=== PATIENT | male | born 1940 ===

== ENCOUNTER 2020-11-14 12:04 | Observation (INO) | payer MEDICARE ==
[~2020-11-14] VITALS: Ht 167.6 cm; Wt 58.8 kg
[2020-11-14] MEDS ORDERED: METF500 PO (12:23)
[2020-11-14] MEDS ORDERED: Aspir 8181 MG PO (12:24)
[2020-11-14] MEDS ORDERED: GLIP10 PO (12:24)
[2020-11-14] MEDS ORDERED: TOPROL XL50 MG PO (12:24)
[2020-11-14] MEDS ORDERED: CLOP75 PO (12:24)
[2020-11-14] MEDS ORDERED: ATORVASTATIN CA40 M1 PO (12:24)
[2020-11-14] MEDS ORDERED: POTA10T PO (12:25)
[2020-11-14] MEDS ORDERED: FERSU300 PO (12:25)
[2020-11-14] MEDS ORDERED: TORSE20 PO (12:25)
[2020-11-14] MEDS ORDERED: Norco 5-325 Ta1 EACH PO (12:25)
[2020-11-14] MEDS ORDERED: RESTORIL PO (12:26)
[2020-11-14 12:39] LABS: BASOPHILS ABSOLUTE AUTO 0.04 K/mm3 (0.00-0.23); BASOPHILS PERCENT AUTO 1 % (0-2); EOSINOPHILS ABSOLUTE AUTO 0.02 K/mm3 (0.00-0.68); EOSINOPHILS PERCENT AUTO 0 % (0-6); Hematocrit 43.3 % (37.0-53.0); Hemoglobin 13.8 g/dL (13.5-17.5); IMMATURE GRAN ABSOLUTE AUTO 0.03 K/mm3 (0.00-0.10); IMMATURE GRAN PERCENT AUTO 0 % (0-1); LYMPHOCYTES ABSOLUTE AUTO 1.05 K/mm3 (0.84-5.20); LYMPHOCYTES PERCENT AUTO 14 % (21-46); MONOCYTES ABSOLUTE AUTO 0.47 K/mm3 (0.16-1.47); MONOCYTES PERCENT AUTO 6 % (4-13); Mean Corpuscular HGB 32.8 pg (26.0-34.0); Mean Corpuscular HGB Conc 31.9 g/dL (31.5-36.5); Mean Corpuscular Volume 103 fL (80-100); Mean Platelet Volume 10.9 fL (9.1-12.4); NEUTROPHILS ABSOLUTE AUTO 5.92 K/mm3 (1.96-9.15); NEUTROPHILS PERCENT AUTO 79 % (41-73); Platelet Count 182 K/mm3 (150-400); RDW Coefficient Variation 14.6 % (11.7-14.2); Red Blood Cell Count 4.21 M/mm3 (4.30-5.90); White Blood Cell Count 7.53 K/mm3 (4.00-11.30)
[2020-11-14 12:57] LABS: Albumin, Blood 3.6 g/dL (3.4-5.0); Albumin/Globulin Ratio 0.9 (0.8-1.8); Bilirubin, Total 1.8 mg/dL (0.1-1.0); Bun/Creatinine Ratio 22.8 (12.0-20.0); Calcium, Blood 9.4 mg/dL (8.5-10.1); Creatinine, Blood 2.06 mg/dL (0.60-1.20); Globulin, Blood 3.9 g/dL (2.2-4.0); Potassium, Blood 5.1 mmol/L (3.5-5.5); Total Protein, Blood 7.5 g/dL (6.4-8.2); Troponin I 0.098 ng/mL (0.000-0.040)
[2020-11-14 13:54] LABS: Source, Urine Clean Catch
[2020-11-14 14:01] LABS: Bilirubin, Urine Neg (Neg); Blood, Urine Neg (Neg); Glucose Qualitative, Urine 4+ (Neg); Ketones, Urine 1+ (Neg); Leukocyte Esterase, Urine 1+ (Neg); Nitrite, Urine Neg (Neg); Protein, Urine 3+ (Neg); Urobilinogen, Urine 1+ (Normal)
[2020-11-14 14:25] LABS: Appearance, Urine Clear (Clear); Color, Urine Yellow (P-Yellow)
[2020-11-14 14:27] LABS: Bacteria Few /hpf; Red Blood Cells, Urine 0-2 /hpf (0-2); Squamous Epithelial Cells Few /hpf (Few)
[2020-11-14 14:28] LABS: Amorphous Light (0-Heavy)
--- NOTE | 2020-11-14 19:16 | NUR ---
1909 PT ADMITTED TO ROOM 361 PER CART FROM ER VIA CART; REPORT RECEIVED FROM AYAKA TORRES VIA ER; ALERT AND ORIENTED X 4.
[2020-11-14] MEDS ORDERED: PANT40 PO (22:06)
[2020-11-14] MEDS ORDERED: Fosinopril Sodi20 MG PO (22:07)
[2020-11-14] MEDS ORDERED: THERA-D2000 UNIT PO (22:09)
[2020-11-14] MEDS ORDERED: DOCU100 PO (22:10)
[2020-11-14] MEDS ORDERED: Vitamin B-121000 MCG PO (22:10)
[2020-11-14] MEDS ORDERED: MULVITA PO (22:11)
[2020-11-14] MEDS ORDERED: MIRALAX17 GM PO (22:11)
--- NOTE | 2020-11-15 03:47 | NUR ---
SHIFT SUMMARY: 79 Y/O MALE RESTED COMFORTABLY ALL SHIFT WITH NO C/O PAIN, NAUSEA OR RESPIRATORY DISTRESS; ALERT AND ORIENTED X 4; TELEMETRY REFLECTS NSR PER FEMI--RESIDENT ASSISTANT; BED ALARM APPLIED FOR SAFETY, BED LOW POSITION WITH CALL LIGHT AT SIDE.
[2020-11-15 05:17] LABS: BASOPHILS ABSOLUTE AUTO 0.03 K/mm3 (0.00-0.23); BASOPHILS PERCENT AUTO 0 % (0-2); EOSINOPHILS ABSOLUTE AUTO 0.05 K/mm3 (0.00-0.68); EOSINOPHILS PERCENT AUTO 1 % (0-6); Hematocrit 39.9 % (37.0-53.0); Hemoglobin 12.6 g/dL (13.5-17.5); IMMATURE GRAN ABSOLUTE AUTO 0.03 K/mm3 (0.00-0.10); IMMATURE GRAN PERCENT AUTO 0 % (0-1); LYMPHOCYTES ABSOLUTE AUTO 1.44 K/mm3 (0.84-5.20); LYMPHOCYTES PERCENT AUTO 18 % (21-46); MONOCYTES ABSOLUTE AUTO 0.79 K/mm3 (0.16-1.47); MONOCYTES PERCENT AUTO 10 % (4-13); Mean Corpuscular HGB 31.7 pg (26.0-34.0); Mean Corpuscular HGB Conc 31.6 g/dL (31.5-36.5); Mean Corpuscular Volume 101 fL (80-100); NEUTROPHILS PERCENT AUTO 71 % (41-73); Platelet Count 163 K/mm3 (150-400); RDW Coefficient Variation 14.5 % (11.7-14.2); Red Blood Cell Count 3.97 M/mm3 (4.30-5.90); White Blood Cell Count 7.94 K/mm3 (4.00-11.30)
[2020-11-15 05:29] LABS: Bun/Creatinine Ratio 23.7 (12.0-20.0); Calcium, Blood 9.2 mg/dL (8.5-10.1); Creatinine, Blood 2.28 mg/dL (0.60-1.20); Magnesium, Blood 2.3 mg/dL (1.6-2.4); Potassium, Blood 5.6 mmol/L (3.5-5.5)
--- NOTE | 2020-11-15 13:45 | NUR ---
ADMIT: 11/14/20 DISCHARGE: DX: Shortness of breath, poor appetite CC: [facility] CALL: RESIDENCE: home CAREGIVER: Kalpesh Herrera, Child, Amber Herrera, Family Member, DX:Abnl weight loss, CKD-stage 3, HTN, GERD, see list DME: none CCM: none HOME HEALTH: none SUMMARY: Admit: 11/14/20 11/15/20- Per chart review with Dr. Jaramillo, pt has been found to have heart failure, DRE, possibly due to poor oral intake of nutrition. Pt could potentially be d/c either Monday or Monday. 1: Shortness of breath A/P: Unclear etiology. CXR wnl. BNP significantly elevated but pt has no clinical signs of CHF exacerbation, no edema, or crackles and clinically appears dry. In fact pt is down 10 kg from last weight in PCP office. No fevers or cough to suggest pneumonia. COVID swab was negative. Pt able to oxygenate well, no tachypnea. -Pt given IV furosemide in ED, will monitor response and if improvement in respiratory status. -Pt had elevated D-dimer, however known kidney disease. Well score is 0, so low suspicion regardless of D-dimer. Will get US of LE, if DVT seen with do CTA of chest, but otherwise will hold off on CT of chest. 2: Poor appetite with nausea. A/P: Unclear etiology. Abdominal exam benign, non-surgical. Pt had leukocytes in urine, possible UTI leading to poor appetie and nausea. -Culture urine -IV ceftriaxone -Zofran PRN for nausea -Continue to monitor 3: Acute on chronic kidney failure A/P: sCR 2.06, GFR 33. Pt baseline of sCr 1.62, FR 44. This is probably due to poor PO intake, but may also be 2/2 to urinary infection. -Urine culture as above -Treat anorexia/nausea as above -Repeat BMP in AM. 4: Heart failure with reduced ejection fraction A/P: Baseline LVEF of 23%. Pt with elevation of BNP, but no physical exam finding c/w with acute exacerbation of such. Pt was given IV furosemide in ED. Will monitor response and reassess in AM. Continue home metoprolol, ASA, plavix, monopril and torsemide. 5: Diabetes mellitus, type 2 A/P: Holding home metformin and glipizide given DRE -BG qAC&HS, LDSSI 6: Hypertension A/P: Continue home metoprolol, monopril and torsemide. 7: Hyperlipidemia A/P: Continue home atorvastatin 8: Chronic insomnia A/P: Continue home temazepam.
[2020-11-15 14:30] LABS: Bun/Creatinine Ratio 24.8 (12.0-20.0); Calcium, Blood 9.3 mg/dL (8.5-10.1); Creatinine, Blood 2.22 mg/dL (0.60-1.20)
[2020-11-15] MEDS ORDERED: ONDA4 PO (16:47)
[2020-11-15] MEDS ORDERED: CEPH250A PO (16:48)
--- NOTE | 2020-11-15 17:13 | NUR ---
DISCHARGE PT DISCHARGED WITH NO ACUTE CHANGES IN ASSESSMENT. PT & HIS DAUGHTER IN LAW EDUCATED ON DC INSTRUCTIONS, NEW MEDS, AND FOLLOW UP APPOINTMENTS. INCLUDING FOLLOW UP LABS. PT WHEELED OUT BY THIS RN. DRIVEN HOME BY DAUGHTER IN LAW.
== END 2020-11-15 16:59 | disposition home or self-care (01) ==
LOC: ER 12:04 → ERHOLD 12:05 → MEDS 19:09
PROVIDERS: Emergency Medicine; ADMIT Family Medicine
DX: R06.02 Shortness of breath (principal); R63.0 Anorexia; R11.0 Nausea; R00.0 Tachycardia, unspecified; N17.9 Acute kidney failure, unspecified; I13.0 Hypertensive heart and chronic kidney disease with heart failure and stage 1 through stage 4 chronic kidney disease, or unspecified chronic kidney disease; E11.22 Type 2 diabetes mellitus with diabetic chronic kidney disease; N18.30 Chronic kidney disease, stage 3 unspecified; I50.20 Unspecified systolic (congestive) heart failure; E78.5 Hyperlipidemia, unspecified; F51.04 Psychophysiologic insomnia; I25.10 Atherosclerotic heart disease of native coronary artery without angina pectoris; I27.20 Pulmonary hypertension, unspecified; H91.90 Unspecified hearing loss, unspecified ear; S91.114D Laceration without foreign body of right lesser toe(s) without damage to nail, subsequent encounter; Z79.84 Long term (current) use of oral hypoglycemic drugs; Z79.02 Long term (current) use of antithrombotics/antiplatelets; Z79.82 Long term (current) use of aspirin; Z95.5 Presence of coronary angioplasty implant and graft; Z87.891 Personal history of nicotine dependence; Z95.810 Presence of automatic (implantable) cardiac defibrillator; Z66 Do not resuscitate; Z88.0 Allergy status to penicillin; Z20.822 Contact with and (suspected) exposure to COVID-19
CPT/HCPCS: 36415; 71045; 73630; 80048; 80053; 81001; 82947; 83735; 83880; 84484; 85025; 85379; 85651; 86140; 87086; 93005; 93010; 93970; 96372; 96374; 99285-25; A9270; G0378; J0696; J1644; J1940; J2405; J7120

== ENCOUNTER 2020-12-28 01:29 | Day surgery (SDC) | payer MEDICARE ==
[~2020-12-28 01:29] MED LIST: ATORVASTATIN CA40 M1 PO; Aspir 8181 MG PO; CEPH250A PO; CLOP75 PO; DOCU100 PO; FERSU300 PO; Fosinopril Sodi20 MG PO; GLIP10 PO; METF500 PO; MIRALAX17 GM PO; MULVITA PO; Norco 5-325 Ta1 EACH PO; ONDA4 PO; PANT40 PO; POTA10T PO; RESTORIL PO; THERA-D2000 UNIT PO; TOPROL XL50 MG PO; TORSE20 PO; Vitamin B-121000 MCG PO
== END 2020-12-28 22:44 | disposition home or self-care (01) ==
LOC: WOUND 01:29
DX: E11.621 Type 2 diabetes mellitus with foot ulcer (principal); L97.512 Non-pressure chronic ulcer of other part of right foot with fat layer exposed; E11.51 Type 2 diabetes mellitus with diabetic peripheral angiopathy without gangrene; I10 Essential (primary) hypertension; I73.9 Peripheral vascular disease, unspecified; I87.2 Venous insufficiency (chronic) (peripheral); Z88.0 Allergy status to penicillin; Z87.891 Personal history of nicotine dependence
CPT/HCPCS: G0463

== ENCOUNTER 2021-01-06 01:30 | Day surgery (SDC) | payer MEDICARE | END 2021-01-06 22:40 | disposition home or self-care (01) | LOC: WOUND 01:30 | DX: E11.621 Type 2 diabetes mellitus with foot ulcer (principal); L97.512 Non-pressure chronic ulcer of other part of right foot with fat layer exposed; E11.51 Type 2 diabetes mellitus with diabetic peripheral angiopathy without gangrene; I73.9 Peripheral vascular disease, unspecified; I87.2 Venous insufficiency (chronic) (peripheral) | CPT/HCPCS: A9270; G0463 ==

== ENCOUNTER 2021-01-13 00:23 | Day surgery (SDC) | payer MEDICARE | END 2021-01-13 22:35 | disposition home or self-care (01) | LOC: WOUND 00:23 | DX: E11.621 Type 2 diabetes mellitus with foot ulcer (principal); L97.512 Non-pressure chronic ulcer of other part of right foot with fat layer exposed; E11.51 Type 2 diabetes mellitus with diabetic peripheral angiopathy without gangrene; I87.2 Venous insufficiency (chronic) (peripheral); E11.65 Type 2 diabetes mellitus with hyperglycemia | CPT/HCPCS: A9270; G0463 ==

== ENCOUNTER 2021-01-15 16:21 | Inpatient (IN) | payer MEDICARE ==
[~2021-01-15] VITALS: Ht 162.6 cm; Wt 70.6 kg
[2021-01-15 16:56] LABS: BASOPHILS ABSOLUTE AUTO 0.03 K/mm3 (0.00-0.23); BASOPHILS PERCENT AUTO 1 % (0-2); EOSINOPHILS ABSOLUTE AUTO 0.04 K/mm3 (0.00-0.68); EOSINOPHILS PERCENT AUTO 1 % (0-6); Hematocrit 44.8 % (37.0-53.0); Hemoglobin 14.5 g/dL (13.5-17.5); IMMATURE GRAN ABSOLUTE AUTO 0.01 K/mm3 (0.00-0.10); IMMATURE GRAN PERCENT AUTO 0 % (0-1); LYMPHOCYTES ABSOLUTE AUTO 1.21 K/mm3 (0.84-5.20); LYMPHOCYTES PERCENT AUTO 25 % (21-46); MONOCYTES ABSOLUTE AUTO 0.43 K/mm3 (0.16-1.47); MONOCYTES PERCENT AUTO 9 % (4-13); Mean Corpuscular HGB 33.2 pg (26.0-34.0); Mean Corpuscular HGB Conc 32.4 g/dL (31.5-36.5); Mean Corpuscular Volume 103 fL (80-100); Mean Platelet Volume 10.7 fL (9.1-12.4); NEUTROPHILS ABSOLUTE AUTO 3.16 K/mm3 (1.96-9.15); NEUTROPHILS PERCENT AUTO 65 % (41-73); Platelet Count 151 K/mm3 (150-400); RDW Coefficient Variation 17.3 % (11.7-14.2); RDW Standard Deviation 65.3 fL (35.1-46.3); Red Blood Cell Count 4.37 M/mm3 (4.30-5.90); White Blood Cell Count 4.88 K/mm3 (4.00-11.30)
[2021-01-15 17:26] LABS: Albumin, Blood 3.1 g/dL (3.4-5.0); Albumin/Globulin Ratio 0.8 (0.8-1.8); Bilirubin, Total 1.4 mg/dL (0.1-1.0); Bun/Creatinine Ratio 21.8 (12.0-20.0); Calcium, Blood 9.5 mg/dL (8.5-10.1); Creatinine, Blood 2.34 mg/dL (0.60-1.20); Globulin, Blood 4.1 g/dL (2.2-4.0); Potassium, Blood 5.2 mmol/L (3.5-5.5); Total Protein, Blood 7.2 g/dL (6.4-8.2); Troponin I 0.089 ng/mL (0.000-0.040)
[2021-01-15] MEDS ORDERED: Fosinopril Sodi10 MG PO (19:16)
[2021-01-15] MEDS ORDERED: TORS10 PO (19:16)
[2021-01-15] MEDS ORDERED: TORSE20 PO (19:17)
[2021-01-15 20:50] LABS: Source, Urine Clean Catch
[2021-01-15 20:59] LABS: Appearance, Urine Clear (Clear); Bilirubin, Urine Neg (Neg); Blood, Urine Neg (Neg); Color, Urine Yellow (P-Yellow); Glucose Qualitative, Urine Neg (Neg); Ketones, Urine Neg (Neg); Leukocyte Esterase, Urine 1+ (Neg); Nitrite, Urine Neg (Neg); Protein, Urine 3+ (Neg); Specific Gravity, Urine 1.015 (1.003-1.022); Urobilinogen, Urine NORM (Normal)
[2021-01-15 21:13] LABS: Bacteria Rare /hpf; Hyaline Casts 50-100 /lpf (0-2); Red Blood Cells, Urine Not Seen /hpf (0-2); Squamous Epithelial Cells Rare /hpf (Few); White Blood Cells, Urine 0-2 /hpf (0-5)
[2021-01-15] MEDS ORDERED: METOPROLOL SUCC25 MG PO (21:58)
[2021-01-15] MEDS ORDERED: SEMGLEE PE100 UNIT/1 SC (21:58)
[2021-01-15] MEDS ORDERED: Fosinopril Sodi20 MG PO (21:59)
[2021-01-15 23:36] LABS: Troponin I 0.105 ng/mL (0.000-0.040)
[2021-01-16] MEDS ORDERED: PANT40 PO ×2 (00:22→00:23)
--- NOTE | 2021-01-16 00:25 | NUR ---
ADMISSION: PATIENT IS RECIEVED FROM ER. VSS, BP IS SOFT. PATIENT IS ASYMPTOMATIC. PATIENT AND FAMILY ARE ORIENTED TO ROOM AND CALL SANCHEZ. DAUGHTER WILL TAKE VALUBLES HOME. BED ALARM IS ON FOR SAFETY.
--- NOTE | 2021-01-16 04:24 | NUR ---
SHIFT SUMMARY: PATIENT IS A&OX3, DOES NOT KNOW DATE. BP HAS IMPROVED WITH 500 ML OF NS. TROPONINS ARE ELEVATED, 0.089 AND 0.105. NO REPORTS OF CHEST PAIN. NSR WITH BBB ON TELI. DR CORREIA IS UNDATED ON TROPONINS AND WILL REVIEW CHART. PATIENT HAS A PRESSURE ULCER FROM ILL FITTING SHOES THAT IS BEING TREATED AT HOME WITH DRSG CHANGES QOD. DAUGHTER IN LAW OFFERS TO BRING IN MEDICATED INTMENT BEING USED TO CONTINUE CURRENT TREATMENTS WHILE IN HOSPITAL. THIS ORDER IS ALSO OBTAINED BY DR CORREIA.
[2021-01-16 06:49] LABS: BASOPHILS ABSOLUTE AUTO 0.03 K/mm3 (0.00-0.23); BASOPHILS PERCENT AUTO 1 % (0-2); EOSINOPHILS ABSOLUTE AUTO 0.02 K/mm3 (0.00-0.68); EOSINOPHILS PERCENT AUTO 0 % (0-6); Hematocrit 46.2 % (37.0-53.0); IMMATURE GRAN ABSOLUTE AUTO 0.02 K/mm3 (0.00-0.10); IMMATURE GRAN PERCENT AUTO 0 % (0-1); LYMPHOCYTES ABSOLUTE AUTO 1.28 K/mm3 (0.84-5.20); LYMPHOCYTES PERCENT AUTO 21 % (21-46); MONOCYTES ABSOLUTE AUTO 0.48 K/mm3 (0.16-1.47); MONOCYTES PERCENT AUTO 8 % (4-13); Mean Corpuscular HGB 33.3 pg (26.0-34.0); Mean Corpuscular HGB Conc 32.5 g/dL (31.5-36.5); Mean Corpuscular Volume 103 fL (80-100); Mean Platelet Volume 10.9 fL (9.1-12.4); NEUTROPHILS ABSOLUTE AUTO 4.37 K/mm3 (1.96-9.15); NEUTROPHILS PERCENT AUTO 71 % (41-73); Platelet Count 151 K/mm3 (150-400); RDW Coefficient Variation 17.7 % (11.7-14.2)
[2021-01-16 07:07] LABS: Albumin, Blood 2.8 g/dL (3.4-5.0); Albumin/Globulin Ratio 0.8 (0.8-1.8); Bilirubin, Total 1.6 mg/dL (0.1-1.0); Bun/Creatinine Ratio 21.7 (12.0-20.0); Calcium, Blood 9.3 mg/dL (8.5-10.1); Creatinine, Blood 2.4 mg/dL (0.60-1.20); Globulin, Blood 3.7 g/dL (2.2-4.0); Potassium, Blood 5.4 mmol/L (3.5-5.5); Total Protein, Blood 6.5 g/dL (6.4-8.2); Troponin I 0.114 ng/mL (0.000-0.040)
--- NOTE | 2021-01-16 16:56 | NUR ---
SHIFT SUMMARY NO ACUTE EVENTS THIS SHIFT, VSS. PATIENT IS ALERT AND ORIENTED, COOPERATIVE WITH CARE. SOBOBA. PRESSURE WOUND NOTED ON 2ND TO OUTERMOST TOE OF RIGHT FOOD, ON R OUTER SIDE OF TOE, DOCUMENTED WITH PICTURE IN CHART. DRESSING CHANGE DONE THIS AM BY THIS RN, NO DISCHARGE NOTED AT SITE. PATIENT STARTED ON IV LASIX THIS SHIFT, IV ABX CONTINUED. NO DIARRHEA, PATIENT DENIES PAIN THIS SHIFT. BLOOD SUGAR COVERED AC PER EMAR.
--- NOTE | 2021-01-16 22:36 | NUR ---
CARDIAC: PATIENT HAD A 12 BEAT RUN OF V-TACH. VS SHOW A SLIGHT DROP IN BP. PATIENT IS ASYMPTOMATIC. THIS EVENT IS S/P STRAIGHT CATH AND MULTIPLE IV START ATTEMPS. DR MAZARIEGOS IS NOTIFIED AND ORDERS FOR BMP AND MAG IN AM. CONTINUE TO MONITOR ON TELI.
--- NOTE | 2021-01-17 00:37 | NUR ---
CARDIAC: @ 2340 PATIENT HAD A 6 BEAT RUN OD V-TACH. VS 98.6, 108, 24, 80/52. AT THIS TIME PATIENT IS ASYMPTOMATIC. @ 1566 CHEMICAL RESEARCH ENGINEER WAS PLACING A CALL TO MD AND PATIENT BECAME DIAPHORETIC, SLOW TO RESPOND AND CLUTCHING HIS CHEST PER LAWN SERVICE SUPERVISOR IN ROOM. RAPID RESPONSE IS CALLED. DR VELÁZQUEZ ORDERUDNCAN ARE TO START NS BOLUS, STAT LABS, LEVOPHED GTT AND TRANSFER TO ICU. DAUGHTER IN LAW, HARESH VAZQUEZ IS IN THE ROOM AND IS AWARE OF CHANGE IN CONDITION AND TRANSFER. NS BOLUS IS STARTED. LEVOPHED GTT WILL BE STARTED IN ICU.
--- NOTE | 2021-01-17 00:57 | NUR ---
: LATE ENTRY FOR 01/15/212114 PATIENT IS DTV, BLADDER SCAN SHOWS OVER [address] MAZARIEGOS IS NOTIFIED AND ORDER TO STRAIGHT CATH WAS OBTAINED. REPEAT BLADDER SCAN IN AM, IF RETAINING OVER [address] MOSQUERA.
[2021-01-17 01:01] LABS: BASOPHILS ABSOLUTE AUTO 0.05 K/mm3 (0.00-0.23); BASOPHILS PERCENT AUTO 1 % (0-2); EOSINOPHILS ABSOLUTE AUTO 0.12 K/mm3 (0.00-0.68); EOSINOPHILS PERCENT AUTO 2 % (0-6); Hematocrit 45.1 % (37.0-53.0); Hemoglobin 14.2 g/dL (13.5-17.5); IMMATURE GRAN ABSOLUTE AUTO 0.01 K/mm3 (0.00-0.10); IMMATURE GRAN PERCENT AUTO 0 % (0-1); LYMPHOCYTES ABSOLUTE AUTO 2.06 K/mm3 (0.84-5.20); LYMPHOCYTES PERCENT AUTO 31 % (21-46); MONOCYTES ABSOLUTE AUTO 0.44 K/mm3 (0.16-1.47); MONOCYTES PERCENT AUTO 7 % (4-13); Mean Corpuscular HGB 33.5 pg (26.0-34.0); Mean Corpuscular HGB Conc 31.5 g/dL (31.5-36.5); Mean Corpuscular Volume 106 fL (80-100); Mean Platelet Volume 10.5 fL (9.1-12.4); NEUTROPHILS ABSOLUTE AUTO 3.92 K/mm3 (1.96-9.15); NEUTROPHILS PERCENT AUTO 59 % (41-73); Platelet Count 144 K/mm3 (150-400); RDW Coefficient Variation 17.4 % (11.7-14.2); RDW Standard Deviation 68.8 fL (35.1-46.3); Red Blood Cell Count 4.24 M/mm3 (4.30-5.90)
[2021-01-17 01:10] LABS: Source, Urine Catheter
[2021-01-17 01:12] LABS: Bilirubin, Urine Neg (Neg); Blood, Urine 4+ (Neg); Glucose Qualitative, Urine Neg (Neg); Ketones, Urine Neg (Neg); Leukocyte Esterase, Urine 1+ (Neg); Nitrite, Urine Neg (Neg); Protein, Urine 2+ (Neg); Specific Gravity, Urine 1.015 (1.003-1.022); Urobilinogen, Urine NORM (Normal)
[2021-01-17 01:13] LABS: Appearance, Urine Clear (Clear); Color, Urine Yellow (P-Yellow)
[2021-01-17 01:21] LABS: Albumin, Blood 2.8 g/dL (3.4-5.0); Anion Gap 10 mmol/L (6-16); Blood Urea Nitrogen 57 mg/dL (8-24); Bun/Creatinine Ratio 22.5 (12.0-20.0); CO2, Blood 20 mmol/L (21-32); Calcium, Blood 8.8 mg/dL (8.5-10.1); Chloride, Blood 105 mmol/L (98-108); Creatinine, Blood 2.53 mg/dL (0.60-1.20); Glomerular Filtration Rate 26 (60-); Glucose, Blood 258 mg/dL (70-99); Magnesium, Blood 2.3 mg/dL (1.6-2.4); Phosphorus, Blood 4.3 mg/dL (2.5-4.9); Potassium, Blood 4.9 mmol/L (3.5-5.5); Sodium, Blood 135 mmol/L (136-145); Troponin I 0.103 ng/mL (0.000-0.040)
[2021-01-17 01:26] LABS: Amorphous Light (0-Heavy); Bacteria Rare /hpf; Hyaline Casts 25-50 /lpf (0-2); Red Blood Cells, Urine TNTC /hpf (0-2); Squamous Epithelial Cells Not Seen /hpf (Few); White Blood Cells, Urine Rare /hpf (0-5)
--- NOTE | 2021-01-17 02:55 | NUR ---
ASSUMED PT CARE AT 0010 PT TRANSFERRED TO ICU FROM MEDICAL FLOOR SECONDARY TO HYPOTENION WITH A 12 BEAT RUN OF VTACH. UPON ARRIVAL ON UNIT PT WAS NOTED TO BE PALE, DIAPHORETIC, AND SOB. LUNG SOUNDS HAD CRACKLES AND RHONCHI NOTED TO BASES. PT WAS ON 6L OF OXYGEN VIA NC; HOWEVER, OXYGEN SATURATIONS WERE MID 80'S UPON ARRIVAL. PT PLACED ON CPAP WITH 10L BLEED IN, WHICH IS NOW DOWN TO 3L. PT HAS POOR PERFUSION EVIDENCED BY PALE NAIL BEDS AND PURPLE DISCOLORATION TO EARS AND KNEES; NONETHELESS, HE IS COLD TO THE TOUCH. THEREFORE, UNSURE IF MID 80'S BIOX WAS A TRUE READING. FOREHEAD PROBE PLACED WITH OXYGEN SATURATIONS SHOWING >90%. NEW IV PLACED UPON ARRIVAL, 18G TO RIGHT UPPER ARM; BOLUS STOPPED AND LEVOPHED STARTED AT 5MCG/MIN. SBP 90-100'S WITH MAPS >65. HR 90'S; 1ST DEGREE AV BLOCK. DENIES CHEST PAIN. 16F COUDE CATHETER PLACED FOR STRICT I/O MONITORING. PT IS ALERT AND ORIENTED AND ABLE TO MAKE NEEDS KNOWN. CALL LIGHT WITHIN REACH. WILL CONTINUE TO MONITOR.
[2021-01-17 04:30] LABS: Bun/Creatinine Ratio 23.2 (12.0-20.0); Creatinine, Blood 2.46 mg/dL (0.60-1.20); Magnesium, Blood 2.4 mg/dL (1.6-2.4)
--- NOTE | 2021-01-17 05:23 | NUR ---
END OF SHIFT SUMMARY. LEVOPHED TITRATED DOWN TO 2MCG/MIN WITH SBP 90'S, AND MAP'S >65. PT HAS REMAINED ON CPAP WITH 3L BLEED IN; BIOX >90%. WORK OF BREATHING HAS EASED. PT IS NO LONGER DIAPHORETIC AND APPEARS COMFORTABLE AT THIS TIME. PT IS ALERT AND ORIENTED. HE IS ABLE TO SHIFT OWN WEIGHT IN BED. MOSQUERA CATHETER IS PATENT AND DRAINING DAWN COLORED URINE TO GRAVITY. VSS AT THIS TIME, SEE FLOWSHEET. WILL CONTINUE TO MONITOR UNTIL REPORT IS HANDED OFF TO ONCOMING RN.
--- NOTE | 2021-01-17 08:22 | NUR ---
ASSUMED CARE BEDSIDE REPORT RECIEVED. PT IS LAYING IN BED AWAKE, ALERT, AND ORIENTED. PT ANSWERS QUESTIONS APPROPRIATELY. VITAL SIGNS STABLE AT THIS TIME. SBP 90'S WITH LEVOPHED ON STANDBY. PT ON ROOM AIR. PT DENIES SOB AT REST. PT MOVES ALL EXTREMITIES, WEAKNESS NOTED. IV'S SALINE LOCKED. MOSQUERA IN PLACE WITH CLEAR YELLOW OUTPUT NOTED. EDEMA TO BLE'S NOTED. WILL CONTINUE TO MONITOR.
--- NOTE | 2021-01-17 13:08 | NUR ---
UPDATE PT WITH DECREASING BP THIS MORNING. DR WONG CONSULTED PER DR CHURCHILL. BEDSIDE ECHO DONE. PT ON LEVOPHED AT 2 MCG/MIN AT THIS TIME. DR WONG AND DR CHURCHILL AWARE. PT REMAINS ALERT AND PLEASANT. PT DAUGHTER IN LAW HARESH UPDATED VIA PHONE. WILL CONTINUE CURRENT PLAN OF TREATMENT AT THIS TIME. GOAL MAP [address] WONG. WILL CONTINUE TO MONITOR.
--- NOTE | 2021-01-17 14:31 | NUR ---
ECHOCARDIOGRAM COMPLETE
--- NOTE | 2021-01-17 17:15 | NUR ---
SHIFT SUMMARY NO ACUTE CHANGES THIS SHIFT. PT HAS REMAINED ALERT AND ORIENTED WHEN AWAKE. PT WITH A FEW SHORT NAPS THROUGHOUT THE SHIFT. PT ANSWERS QUESTIONS APPROPRIATELY. PT DENIES PAIN OR DISCOMFORT. VITAL SIGNS HAVE REMAINED STABLE. PT CONTINUES TO HAVE SBP 80-100'S. LEVOPHED ON STANDBY AT THIS TIME. NS INFUSING TKO. PT ON 2L O2 NC. MOSQUERA REMAINS IN PLACE WITH MINIMAL AMOUNT OF DARK YELLOW URINE OUTPUT NOTED. PT WITH EDEMA TO EXTREMITIES UNCHANGED. PT TOLERATING PO FOOD AND FLUIDS WELL. PT SON AT BEDSIDE TO VISIT THIS AFTERNOON. WILL CONTINUE TO MONITOR AND REPORT OFF TO ONCOMING RN.
--- NOTE | 2021-01-17 19:15 | NUR ---
CARE ASSUMED PT A&O, [place], WATCHING TV. PIV WITH TKO. MOSQUERA IN PLACE DRAINING CL/YELLOW.
--- NOTE | 2021-01-17 21:29 | NUR ---
PT CLAIMS HE IS SOB, ATTEMPT CPAP WITH PT, PT DOES NOT NASIR CPAP, PLACED BACK ON NC 3 L. RT CALLED.
--- NOTE | 2021-01-17 21:35 | NUR ---
ASSESSMENT 2114 PT CALLED, CLAIMS NOT FEELING WELL, HAVING A HARD TIME BREATHING. PLACED PT ON CPAP WITH 3 L O2, BS, CLEAR BILAT UPPER, CRACKLES BASES, RR 26, SATS 90%, VITALS NOTED ON FLOWSHEET, NOTOFIED DREDGE MASTER 2128 PT MOIST, PALE, COOL. CBG CHECKED 270. 2131 BP LOW, MAP 47- STARED LEVO GTT. 2140-DREDGE MASTER AWARE, CALL FAMILY AND MD. BP REMAINS LOW, INCREASED RR 30'S, INCREASED LEVO GTT TO 4 MCG/MIN. CONTINUE TO ASSESS. FAMILY ON THERE WAY IN.
--- NOTE | 2021-01-17 21:52 | NUR ---
RT IN ROOM, ATTEMPT CPAP AGAIN, CHANGED SETTING A FEW TIMES TO HELP PT COMFORT. PT RATHER IT OFF, PT CLAIMS HE IS NOT GETTTING ENOUGH AIR, NOT COMFORTABLE FOR HIM. PLACED BACK ON NRB 15 L.
--- NOTE | 2021-01-17 22:01 | NUR ---
RT IN ROOM, PT AGREED TO TRY CPAP AGAIN. SEVERAL AJUSTMENTS MADE, THEN PT ASKED TO REMAOVE CPAP, PLACED ON NRB 15 L.
--- NOTE | 2021-01-17 22:19 | NUR ---
2219 MAP @ 59. MD ORDER GOAL MAP 55. LEVO AT 5 MCG/HR. FAMILY AT BEDSIDE NOW.
--- NOTE | 2021-01-17 22:50 | NUR ---
MD NOTIFIED, FAMILY AT BEDSIDE, MILITARY ADMINISTRATIVE TECHNICIAN CALLED IN BY FAMILY PER PT REQUEST.
--- NOTE | 2021-01-18 00:26 | NUR ---
REASSESSMENT CONTINUE LEVO GTT, WEAN NASIR, KEEP MAP >55 PER MD ORDER. MEDS PER DEC. PT FAMILY AT BEDSIDE. CONTINUE ASSESSMENT AND CARE.
--- NOTE | 2021-01-18 01:11 | NUR ---
FAMILY LEAVING PT ON 2 L N/C, LEVO @ 2 MCG. PT A&O, APEARS COMFORTABLE. CONTINUE ASSESSMENT AND CARE.
--- NOTE | 2021-01-18 04:19 | NUR ---
REASSESSMENT PT RESTING, WOKE TO VOICE, A&O, REMAINS ON LOW DOSE LEVO GTT, 3 L N/C. CONTINUE ASSESSMENT AND CARE.
--- NOTE | 2021-01-18 06:34 | NUR ---
OVERNIGHT FAMILY CAME IN TO VISIT PT AND DISCUSS TREATMENT PLAN. ROXANOL STARTED- 2 DOSES GIVEN(SEE MAR) PT ON NRB FOR A PERIOD OF TIME CPAP ATTEMPTED WITH PT, REFUSED 3 L N/C THEN CONTINUED LEVOPHED RESTARTED, CURRENTLY AT 2 MCG/MIN. MOSQUERA IN PLACE WITH LOW OUTPUT Q2 TURNS DONE WITH PILLOW SUPPORT.
--- NOTE | 2021-01-18 08:00 | NUR ---
ASSUMED CARE: REPORT RECEIVED FROM JOVAN Thorne RN. ASSUMED CARE OF THIS PT AT APPROX 0700. ON ASSESSMENT, THE PT IS RESTING QUIETLY. HE AWAKENS EASILY, IS ALERT & ORIENTED TO ALL. HE IS PLEASANT & COOPERATIVE. STS HE IS HAVING NO PAIN BUT OVERALL DOES NOT FEEL WELL. LS ARE COARSE IN BASES, PT ON 3L NC W/ O2 SATS > 92% ON AVG, DROPPING TO 87% AT TIMES WHILE SLEEPING. MONITOR SHOWS SR-ST W/ 1ST DEGREE HB & BBB, HR 90-100s, LEVOPHED INFUSING AT 2 MCG/MIN FOR HYPOTENSION. PT STS HAVING POOR APPETITE R/T FEELING UNWELL, NO OTHER GI COMPLAINTS. MOSQUERA PATENT/ DRAINING DARK YELLOW URINE. SKIN OVERALL FRAGILE, INTACT. Q2H REPOSITIONING TO MAINTAIN SKIN INTEGRITY. WILL CONTINUE TO MONITOR & UPDATE NEEDED.
--- NOTE | 2021-01-18 08:45 | NUR ---
DR SALEH: PROVIDER AT BEDSIDE THIS AM TO EVAL PT. ROBERTO CARLOS Del Rosario, PALLIATIVE CARE RN, ALSO AT BEDSIDE DURING THIS TIME. DR SALEH IS ALSO THIS PT's PCP & HAS HAD OPEN DISCUSSIONS W/ THIS PT REGARDING HIS HEALTH DECLINE IN THE LAST FEW MONTHS. HE UNDERSTANDS THAT HIS CONDITION IS WORSENING & STS THAT HE WANTS TO "GO HOME" W/ HIS WHO APPROX 4 YRS AGO. THE PT WISHES TO SPEAK W/ HARESH, HIS DAUGHTER IN LAW, & PEPE, HIS SON, PRIOR TO FINALIZING HIS DECISION.
--- NOTE | 2021-01-18 10:15 | NUR ---
Initial Pal Care visit and case conference with RN, Radha, Family and [facility] care coord-Edith this am. Pt lying supine in bed with hob elevated, meal tray in front of him, mostly uneaten when I arrived. His RN was in the room caring for him and administering am medications. Mikey is alert and oriented but appears sl apprehensive. He denies pain but reports feeling lightheaded and worse with any exertion, including trying to eat his breakfast. He reports no appetite for remainder of the tray and I took it out. He had had a couple of bites and sips of milk only. Pt denies dyspnea but appears dyspnic with conversation. He has O2 on per SD. Pt stated, "I didn't think I was going to make it thru the night" & "I have some decisions to make". He spoke of his dying at home with Hospice and that he would like to be with her. Pt's PCP, Dr Jennings, rounded during my visit and they reviewed her last visit with pt and family in the office re: end stage heart disease and multi organ/system comorbidities. After left, Pt indicated he did not want any more testing or intervention done. When I asked what his first choice would be regarding d/c to home with hospice, family and his dog, he indicated he would like to go home if he could. When asked if his condition required him to stay in the hospital, he said he was ok with that also. I contacted RN, Radha and family to review my visit with pt. I had long conversation with his dil, Amber and son, Kalpesh. They are 100% supportive of pt's wishes. They will be in later to see him and work on hospice care plans. We obtained permission for them to bring in pt's dog to visit also. I contacted Edith of [facility] and she came by ICU. She was updated and will be working on d/c plan to home with hospice unless pt declines and is too imminent to transfer. Amber, son, RN and in agreement with a modified comfort care plan starting now to allow cont support of some medications in order to maintain stability and be able to transfer pt home. VO obtained and entered for comfort care. Dr Plaza updated also. Later received update from Edith of [facility]. Family has chosen [facility] and they are able to admit pt to Hospice tomorrow per Edith. Edith will work with family and [facility] to coordinate d/c if pt remains stable enough for transport. Pal Care to cont to follow for s/s assessment and support.
--- NOTE | 2021-01-18 11:00 | NUR ---
COMFORT CARE: THE PT HAS DECIDED TO BE COMFORT CARE STATUS W/ THE INTENT TO GO HOME ON HOSPICE. THE PT & HIS FAMILY WOULD LIKE THE LOW DOSE LEVOPHED TO CONTINUE INFUSING SO THAT THE PT IS MORE LIKELY TO MAKE IT HOME. DR SALEH IS UNDERSTANDING OF THIS & IS OKAY W/ THIS PLAN. SEE PALLIATIVE CARE NOTE FOR FURTHER DETAILS.
--- NOTE | 2021-01-18 11:40 | NUR ---
CARE COORDINATION REFERRAL - ADMIT:01/16/21 DISCHARGE: DX: ACUTE GASTROENTERITIS CC: [email or web address] ADMIT: 11/14/20 DISCHARGE: 11/15/20 DX: SHORTNESS OF BREATH, POOR APPETITE [facility] CALL: DAUGHTER IN LAW- HARESH @ [phone]; HOME ON HOSPICE THROUGH [facility] RESIDENCE: HOME CAREGIVER: PEPE VAZQUEZ, CHILD, HARESH VAZQUEZ, FAMILY MEMBER, DX: ACUTE CHF, HTN, GERD, SEE LIST DME: NONE CCM: NONE HOME HEALTH: NONE SUMMARY: ADMIT: 01/16/21 01/18/21- SPOKE WITH ROBERTO CARLOS WITH PALLIATIVE CARE WHILE IN ICU. SHE STATED THAT PT HAS BEEN PUT ON COMFORT CARE FOR END STAGE HEART DZ AND ORGAN FAILURE. WAS GIVEN [id number] NUMBER. SPOKE WITH HARESH, [id number], AND SHE STATED THAT THEY WOULD LIKE TO [facility] HOSPICE. SHE ALSO STATED THAT THEY WILL BE COMING IN TODAY TO SEE THE PT AND BRING HIS DOG IN. CALLED AND SPOKE WITH [facility], THEY CAN DO PT'S INTAKE TOMORROW. PER CHART REVIEW WITH DR. SALEH, UPDATED HER ON FAMILY'S PREFERENCE FOR HOSPICE AND HAD SPOKEN WITH DAUGHTER IN LAW. DR. SALEH WITH PLAN TO D/C THE PT ON , HOME WITH HOSPICE IF HE MAKES UNTIL THAN. CALLED AND UPDATED FAMILY OF ABOVE PLAN. CALLED [facility]OS[facility] AND ALSO LET THEM KNOW THE ABOVE PLAN. -ROBINSON
--- NOTE | 2021-01-18 15:01 | NUR ---
Received t/c from [facility] hospice working on d/c plan and hospice admission tomorrow. Skyler inquired re: pt's PPM/ICD device and requests research and turning off if pt does indeed have defib. Chart reviewed and device was implanted out of area. Vinodkily, Bijal-IDA was present & able to confirm defib device implanted and able to provide device brand, model and serial #. VO obtained and entered from Dr Plaza to have device turned off to prevent future shocks. Pt has exhibited potential shockable rhythm in past couple days. Pt and MPOA/DIL confirm they would like the defibrillator turned off. [facility] contacted with order and device info. Hospice updated on plan. Son and DIL in visiting with plan to get pt requested ice cream treat and to bring beloved dog in for a visit later today. Pt cont to deny pain but is profoundly fatigued. Dyspnea noted with conversation but less than noted this am. Tentative plan is for dc home with family tomorrow and hospice admission at home tomorrow. [facility] [facility] nance arrived to turn defib off prior to me leaving the unit. RN provided consent form to pt/family for signature. Dr Plaza also signed. Hospice notified that procedure completed.
--- NOTE | 2021-01-18 16:06 | NUR ---
MILLER CHOUDHURY REP: MACEY HAS BEEN AT BEDSIDE AT APPROX 1515 FOR ORDERS TO DEACTIVATE PT's PACER/AICD R/T COMFORT MEASURES & ANTICIPATED DISCHARGE TO HOSPICE. THIS HAS BEEN COMPLETED & PAPER DOCUMENTATION HAS BEEN PLACED IN THE CHART.
--- NOTE | 2021-01-18 18:59 | NUR ---
Spiritual care note: Supportive visit to IDA at bedside. Mr. Herrera appeared to be sleeping peacefully thoughout visit. Family osd clerk has been present. Family feels well supported by evangelical family. IDA reports peace with POC. No concerns presented. I will remain available.
--- NOTE | 2021-01-18 21:05 | NUR ---
PT SLEEPING, FAMILY AT BEDSIDE. REQUESTS NOT TO DISTURB AT THIS TIME.
--- NOTE | 2021-01-18 22:06 | NUR ---
FAMILY GOING HOME AT THIS TIME. PT AWAKE WATCHING TV.
--- NOTE | 2021-01-19 02:11 | NUR ---
PT REFUSED TURNING AT THIS TIME, STATES,"I'M COMFORTABLE"
--- NOTE | 2021-01-19 05:48 | NUR ---
SHIFT SUMMARY PT RESTING QUIETLY. TURNED FOR PT COMFORT. HOME TODAY ON HOSPICE. REPORT TO ON COMING NURSE
--- NOTE | 2021-01-19 07:23 | NUR ---
ASSUMED CARE: REPORT RECEIVED FROM ROSAS Carmichael RN. ASSUMED CARE OF THIS PT AT APPROX 0700. ON ASSESSMENT, THE PT IS RESTING QUIETLY & APPEARS COMFORTABLE. SEE COMFORT CARE INTERVENTIONS FOR Q2H REASSESSMENTS OF COMFORT STATUS. WILL CONTINUE TO MONITOR & UPDATE NEEDED.
[2021-01-19] MEDS ORDERED: ATROPINE SULFATE2 M1 SL (09:55)
[2021-01-19] MEDS ORDERED: MIDO5 PO (09:56)
[2021-01-19] MEDS ORDERED: Ativan1 MG PO (09:56)
[2021-01-19] MEDS ORDERED: ONDA4ODT MM (09:59)
[2021-01-19] MEDS ORDERED: MORP20L SL (09:59)
[2021-01-19] MEDS ORDERED: TRANSDERM-SCOP1 EAC4 TOP (10:00)
--- NOTE | 2021-01-19 10:39 | NUR ---
01/19/21- Per chart review with Dr. Alaniz, pt will be d/c today with [facility]. Was given Rx and hospice paperwork by Ryann with [facility] to have Dr. Alaniz sign. Dr. Alaniz signed documents and scripts provided by Hospice. Shredded orginal scripts Dr. Alaniz had left in the pt's chart. Attempted to find POLST/DNR in [facility] chart to give to Hospice. Unable to find document in pt's chart. Ryann will set up transportation for pt at 11 am. Returned Amber's call and updated her on the plan. She is agreeable. -ramón
--- NOTE | 2021-01-19 11:04 | NUR ---
UDPATE: BIN Del Rosario, HOME ASSESSMENT NURSE, HAS ARRANGED FOR PT TO GO HOME ON HOSPICE TODAY. TRANSPORT WAS INITIALLY PLANNED FOR 1100 BUT HAS BEEN DELAYED UNTIL 1300 PER FAMILY PREFERENCE & [facility] DELAYS. DISCHARGE HAS BEEN COMPLETED & THE PT HAS BEEN MADE AWARE OF TRANSPORT TIME. DR SALEH HAS ALSO SEEN THE PT THIS AM & PROVIDED WRITTEN SCRIPTS FOR LORAZEPAM/ ROXANOL WHICH HAVE BEEN PHOTOCOPIED FOR CHART RECORDS. NON-CONTROLLED SCRIPTS HAVE BEEN CALLED TO [facility] IN [place] PER FAMILY PREFERENCE.
--- NOTE | 2021-01-19 14:13 | NUR ---
DISCHARGE TO HOME HOSPICE: [facility] TRANSPORT HAS ARRIVED. THE PT HAS BEEN TRANSFERRED TO A [facility] W/ 4 PERSON ASSIST & HAS BEEN TAKEN OUT OF THE UNIT AT APPROX 1408. ALL OF PT's BELONGINGS, DISCHARGE PACKET & WRITTEN SCRIPTS HAVE BEEN TAKEN OUT W/ THE PT AT THAT TIME. PIVs & ALL MONITORS REMOVED PRIOR.
== END 2021-01-19 14:08 | disposition hospice, home (50) | DRG 291 ==
LOC: ER 16:21 → MEDS 16:22 → ICUE 01-16 16:20 → MEDS 01-16 16:20 → ICUE 01-17 00:07
PROVIDERS: Family Medicine; Internal Medicine; Physician Assistant; ADMIT Internal Medicine
DX: I13.0 Hypertensive heart and chronic kidney disease with heart failure and stage 1 through stage 4 chronic kidney disease, or unspecified chronic kidney disease (principal); R57.0 Cardiogenic shock; I50.43 Acute on chronic combined systolic (congestive) and diastolic (congestive) heart failure; N18.4 Chronic kidney disease, stage 4 (severe); I24.8 Other forms of acute ischemic heart disease; K52.9 Noninfective gastroenteritis and colitis, unspecified; Z51.5 Encounter for palliative care; E11.22 Type 2 diabetes mellitus with diabetic chronic kidney disease; I25.5 Ischemic cardiomyopathy; I95.9 Hypotension, unspecified; Z88.0 Allergy status to penicillin; I27.20 Pulmonary hypertension, unspecified; H91.90 Unspecified hearing loss, unspecified ear; F51.04 Psychophysiologic insomnia; Z79.82 Long term (current) use of aspirin; Z79.899 Other long term (current) drug therapy; Z95.810 Presence of automatic (implantable) cardiac defibrillator; K21.9 Gastro-esophageal reflux disease without esophagitis; E78.5 Hyperlipidemia, unspecified; Z66 Do not resuscitate; E78.00 Pure hypercholesterolemia, unspecified; Z87.891 Personal history of nicotine dependence
CPT/HCPCS: 36415; 51703; 71046; 80048; 80053; 80069; 81001; 82550; 82947; 83605; 83735; 83880; 84145; 84484; 85025; 87040; 87086; 93005; 93010; 93283; 93306; 94660; 96365; 96372; 96375; 97110; 97161; 99285-25; A9270; G0378; J0456; J0696; J1650; J1720; J1940; J3370; J7030; J7040; J7050; J7060; P9046